=== PATIENT | female | born 1995 | race Caucasian/White ===

== ENCOUNTER 2021-11-08 10:25 | Emergency (ER) | payer BC, OTHER ==
[2021-11-08 11:30] VITALS: TEMP 98.7; BMI 29.2
[2021-11-08] MEDS ORDERED: SODIUM CHLORIDE 1,000 ML IV STA (13:13)
[2021-11-08 14:55] LABS: BASO % 0.4 % (0-2.0); EOS % 0.5 % (0-4.5); HEMATOCRIT 39.2 % (32.4-45.2); HEMOGLOBIN 13.5 GM/dL (10.7-15.3); MCH 30.5 pg (25.7-33.7); MCHC 34.4 g/dl (32.0-36.0); MEAN CELL VOLUME 88.8 fl (80-96); MEAN PLT VOLUME 8.5 fl (7.5-11.1); MONO % 6.1 % (3.8-10.2); PLATELET COUNT 335 10^3/uL (134-434); RBC 4.42 M/mm3 (3.60-5.2); RDW 12.4 % (11.6-15.6)
[2021-11-08] MEDS ORDERED: MECLIZINE HCL 25 MG TABLET (FP) PO ONE (14:59)
[2021-11-08 15:00] LABS: INR 0.95 (0.83-1.09); PH,URINE 6.5 (5.0-8.0); PROTHROMBIN TIME (PATIENT) 11.1 SEC (9.7-13.0); URINE APPEARANCE CLEAR; URINE BILIRUBIN NEGATIVE (NEGATIVE); URINE COLOR YELLOW; URINE GLUCOSE (UA) NEGATIVE (NEGATIVE); URINE KETONE NEGATIVE (NEGATIVE); URINE LEUK ESTERASE NEGATIVE (NEGATIVE); URINE NITRITE NEGATIVE (NEGATIVE); URINE PROTEIN NEGATIVE (NEGATIVE); URINE UROBILINOGEN 0.2 mg/dL (0.2-1.0)
[2021-11-08 15:02] LABS: HCG,QUALITATIVE URINE Negative
[2021-11-08] MEDS ORDERED: MECLIZINE HCL 25 MG TABLET (FP) ONE (15:06)
[2021-11-08 15:17] LABS: CHLORIDE 105 mmol/L (98-107); SODIUM 139 mmol/L (136-145)
[2021-11-08 15:19] LABS: ALBUMIN 4.4 g/dl (3.4-5.0); ANION GAP 7 MMOL/L (8-16); BLOOD UREA NITROGEN 10.6 mg/dL (7-18); CALCIUM 9.1 mg/dL (8.5-10.1); CO2 28 mmol/L (21-32); GLUCOSE,RANDOM 80 mg/dL (74-106); MAGNESIUM 2.3 mg/dL (1.8-2.4)
[2021-11-08 15:23] LABS: CREATININE 0.7 mg/dL (0.55-1.3); SGOT/AST 25 U/L (15-37); SGPT/ALT 35 U/L (13-61)
[2021-11-08 15:25] LABS: BILIRUBIN,TOTAL 0.4 mg/dL (0.2-1); TOT PROT 8.6 g/dl (6.4-8.2)
[2021-11-08 15:26] LABS: ALK PHOS 85 U/L (45-117)
[2021-11-08 16:55] VITALS: BP 138/82; PULSE 86
== END 2021-11-08 16:55 | disposition home or self-care (01) ==
LOC: JER 10:25
PROC: 3E0337Z Introduction of Electrolytic and Water Balance Substance into Peripheral Vein, Percutaneous Approach (ICD-10-PCS; principal; 2021-11-08)
DX: R00.2 Palpitations (principal); R42 Dizziness and giddiness
CPT/HCPCS: 36415; 71046-TC-FY; 80053; 81003; 82550; 83735; 84443; 84484; 84703; 85025; 85610; 87086; 93005; 93010; 99284-25; C9803; U0003; U0005

== ENCOUNTER 2023-02-16 07:07 | Emergency (ER) | payer BC, OTHER ==
[2023-02-16 07:48] VITALS: BMI 27.4
[2023-02-16 09:55] LABS: BASO % 0.6 % (0-2.0); HEMATOCRIT 36.1 % (32.4-45.2); HEMOGLOBIN 12.7 GM/dL (10.7-15.3); MCH 31.2 pg (25.7-33.7); MCHC 35.2 g/dl (32.0-36.0); MEAN CELL VOLUME 88.7 fl (80-96); MEAN PLT VOLUME 8.6 fl (7.5-11.1); MONO % 13.6 % (3.8-10.2); NEUT % 55.8 % (42.8-82.8); PLATELET COUNT 269 10^3/uL (134-434); RBC 4.07 M/mm3 (3.60-5.2); RDW 12.5 % (11.6-15.6); WHITE BLOOD COUNT 2.9 K/mm3 (4.0-10.0)
[2023-02-16 10:12] LABS: BLOOD UREA NITROGEN 8.5 mg/dL (7-18); CALCIUM 8.4 mg/dL (8.5-10.1)
[2023-02-16 10:13] LABS: ALBUMIN 3.8 g/dl (3.4-5.0)
[2023-02-16 10:16] LABS: CREATININE 0.6 mg/dL (0.55-1.3)
[2023-02-16 10:17] LABS: TOT PROT 7.5 g/dl (6.4-8.2)
[2023-02-16 11:02] LABS: BILIRUBIN,TOTAL 0.3 mg/dL (0.2-1)
[2023-02-16 12:11] VITALS: BP 136/76; PULSE 85; RESP 18; TEMP 98
== END 2023-02-16 11:11 | disposition home or self-care (01) ==
LOC: JER 07:07
DX: R42 Dizziness and giddiness (principal)
CPT/HCPCS: 36415; 71046-TC-FY; 80053; 84439; 84443; 84484; 84703; 85025; 93005; 93010; 99284-25